=== PATIENT | female | born 1995 | race American Indian/Alaskan Native ===

== ENCOUNTER 2020-10-01 14:31 | Inpatient (IN) | payer OTHER ==
[2020-10-01 15:44] LABS: Bilirubin,Urine NEG (Negative); Blood,Urine NEG (Negative); Color,Urine Straw (Yellow); Protein,Urine <15 mg/dL mg/dL (Negative); Urobilinogen,Urine < 2.0 mg/dL (<2.0); WBC,Urine < 1.0 /HPF (0.0-6.0)
[2020-10-01 16:14] LABS: Hematocrit 30.7 % (30.3-42.9); Hemoglobin 10.4 gm/dl (10.1-14.3); Mean Corpuscular HGB Conc 34 % (30-34); Mean Corpuscular Volume 86 fl (79-97); Platelet Count 234 K/mm3 (140-440); Red Blood Count 3.59 M/mm3 (3.65-5.03); Red Cell Distribution Width 14.6 % (13.2-15.2)
[2020-10-01 16:36] LABS: Uric Acid 6.5 mg/dL (3.5-7.6)
[2020-10-01 16:53] LABS: Alanine Aminotransferase < 5 units/L (7-56)
[2020-10-01] MEDS ORDERED: TERBUTALINE 1 MG/1 ML INJ SUB-Q PRN (17:00)
[2020-10-01] MEDS ORDERED: MAGNESIUM SULFATE 4 GM/100 ML BAG IV ONE (17:00)
[2020-10-01] MEDS ORDERED: OXYTOCIN DRIP 30 UNITS/500 ML BAG IV SCH ×2 (17:00)
[2020-10-01] MEDS ORDERED: MINERAL OIL 30 ML ORAL LIQD PO PRN (17:00)
[2020-10-01] MEDS ORDERED: ePHEDrine SULFATE 50 MG/1 ML INJ IV PRN (17:00)
[2020-10-01] MEDS ORDERED: LIDOCAINE (2%) 20 MG/1 ML VIAL 20 ML MDV INFILTRATI SCH (17:00)
[2020-10-01] MEDS ORDERED: DINOPROSTONE 10 MG VAG SUPP VG NR (17:02)
--- NOTE | 2020-10-01 17:07 | History and Physical Report ---
History of Present Illness Date of examination: 10/01/20 Date of admission: 10/01/2020 Chief complaint: Sent from Office due to elevated Blood Pressures. Denies HAs, visual changes, N&V, heartburn, and edema. History of present illness: Early entry to care, course complicated by Anemia (PO FeSO4); Hgb [place], and initial low BMI (gained 60+lbs). Past History Past Medical History: no pertinent history Past Surgical History: no surgical history Family/Genetic History: none Social history: no significant social history, single - Obstetrical History Expected Date of Delivery: 10/03/20 Actual Gestation: 39 Week(s) 5 Day(s) : 1 Medications and Allergies Allergies Allergy/AdvReac Type Severity Reaction Status Date / Time No Known Allergies Allergy Verified 10/01/20 15:04 Active Meds: Active Medications Butorphanol Tartrate (Butorphanol 2 Mg/1 Ml Inj) 2 mg IV Q2H PRN PRN Reason: Pain , Severe (7-10) Dinoprostone (Dinoprostone 10 Mg Vag Supp) 10 mg VG ONCE ONE Stop: 10/01/20 17:03 Ephedrine Sulfate (Ephedrine Sulfate 50 Mg/1 Ml Inj) 10 mg IV Q2M PRN PRN Reason: Hypotension Oxytocin/Sodium Chloride (Pitocin/Ns 30 Unit/500ml) 30 units in 500 mls @ 2 mls/hr IV TITR MIGUEL; Protocol Lactated Ringer's (Lactated Ringers) 1,000 mls @ 125 mls/hr IV DIRECT MIGUEL Oxytocin/Sodium Chloride (Pitocin/Ns 30 Unit/500ml) 30 units in 500 mls @ 40 mls/hr IV TITR MIGUEL; Protocol Magnesium Sulfate (Magnesium Sulfate 40gm/1000ml) 40 gm in 1,000 mls @ 50 mls/ hr IV DIRECT MIGUEL Magnesium Sulfate (Magnesium Sulfate 4gm/100ml) 4 gm in 100 mls @ 300 mls/hr IV ONCE ONE Stop: 10/01/20 17:19 Lidocaine (Lidocaine (2%) 20 Mg/1 Ml Vial 20 Ml Mdv) 20 ml INFILTRATI ONCE MIGUEL Stop: 10/02/20 16:59 Mineral Oil (Mineral Oil 30 Ml Oral Liqd) 30 ml PO QHS PRN PRN Reason: Constipation Terbutaline Sulfate (Terbutaline 1 Mg/1 Ml Inj) 0.25 mg SUB-Q ONCE PRN PRN Reason: Hyperstimulation/Hypertonicity Review of Systems All systems: negative - Vital Signs Vital signs: Vital Signs Pulse BP 65 175/81 10/01/20 14:55 10/01/20 14:55 Temp Pulse Resp BP Pulse Ox 98.8 F 71 20 158/76 100 10/01/20 15:14 10/01/20 16:59 10/01/20 15:14 10/01/20 16:54 10/01/20 16:59 - Physical Exam Breasts: Positive: normal Cardiovascular: Regular rate Lungs: Positive: Clear to auscultation, Normal air movement Abdomen: Positive: normal appearance, soft, normal bowel sounds Genitourinary (Female): Positive: normal external genitalia, normal perenium Vagina: Positive: normal moisture Uterus: Positive: enlarged Anus/Rectum: Positive: normal perianal skin - Obstetrical FHR: category 1 Uterine Contraction Monitor Mode: External Cervical Dilatation: 1 (Per Dr[address] Alamo) Uterine Contraction Pattern: Absent Uterine Tone Measurement Phase: Resting Results Result Diagrams: 10/01/20 Unknown 10/01/20 Unknown Abnormal lab results 10/01/20 10/01/20 10/01/20 Range/Units 15:22 Unknown Unknown RBC 3.59 L (3.65-5.03) M/mm3 Creatinine 0.5 L (0.6-1.2) mg/dL ALT < 5 L (7-56) units/L Ur Specific [place] 1.002 L (1.003-1.030) All other labs normal. Assessment and Plan A: IUP @ 39 5/7 Weeks Category I Tracing Preeclampsia GBS Negative P: Admit to L&D Per Routine Orders MagSO4 4G/Loading Dose; 2G/hourly Standard Magnesium Precautions Cervidil Induction Consulted Dr. Rogel
[2020-10-01] MEDS: LACTATED RINGERS 1,000 ML IV SCH (17:55)
[2020-10-01] MEDS: MAGNESIUM SULFATE 40GM/1000ML 40 GM/1,000 ML BAG IV SCH (18:46)
[2020-10-01] MEDS: hydrALAZINE 20 MG/1 ML INJ IV PRN ×2 (20:30→21:32)
[2020-10-01] MEDS: ONDANSETRON 4 MG/2 ML INJ IV PRN (22:40)
[2020-10-02] MEDS: BUTORPHANOL 2 MG/1 ML INJ IV PRN ×2 (05:25→15:02)
[2020-10-02] MEDS: LACTATED RINGERS 1,000 ML IV SCH ×2 (06:52→21:43)
[2020-10-02] MEDS: hydrALAZINE 20 MG/1 ML INJ IV PRN (09:09)
[2020-10-02] MEDS: MAGNESIUM SULFATE 40GM/1000ML 40 GM/1,000 ML BAG IV SCH (12:59)
[2020-10-02] MEDS: ONDANSETRON 4 MG/2 ML INJ IV PRN (12:59)
--- NOTE | 2020-10-02 13:31 | Progress Note ---
Assessment and Plan Late entry for 10am A: IUP@ 39.6 wks with preeclampsia P: Continue monitoring with MgSo4 Start Pitocin Pain med/Epidural prn Anticipate Subjective - Subjective Date of service: 10/02/20 Principal diagnosis: IUP@ 39.6 wks with preeclampsia Patient reports: movement normal Objective - Vital Signs Vital Signs: Vital Signs - 12hr 10/02/20 10/02/20 10/02/20 01:27 01:49 01:57 Temperature Pulse Rate 91 H 86 76 Respiratory Rate Blood Pressure 185/98 145/74 154/74 Blood Pressure [Right] 10/02/20 10/02/20 10/02/20 02:56 03:27 03:57 Temperature Pulse Rate 74 76 78 Respiratory Rate Blood Pressure 151/75 161/87 135/63 Blood Pressure [Right] 10/02/20 10/02/20 10/02/20 04:28 04:56 05:59 Temperature Pulse Rate 77 71 71 Respiratory Rate Blood Pressure 160/85 144/77 146/67 Blood Pressure [Right] 10/02/20 10/02/20 10/02/20 06:26 07:04 07:27 Temperature 97.5 F L Pulse Rate 73 65 61 Respiratory 18 Rate Blood Pressure 147/66 147/69 158/74 Blood Pressure 147/69 [Right] 10/02/20 10/02/20 10/02/20 08:27 09:03 09:04 Temperature Pulse Rate 66 74 70 Respiratory Rate Blood Pressure 133/65 184/100 171/84 Blood Pressure [Right] 10/02/20 10/02/20 10/02/20 09:07 09:09 09:27 Temperature Pulse Rate 66 66 75 Respiratory Rate Blood Pressure 178/100 178/100 137/64 Blood Pressure [Right] 10/02/20 10/02/20 10/02/20 09:28 10:26 11:16 Temperature 97.4 F L Pulse Rate 75 75 69 Respiratory 18 Rate Blood Pressure 140/63 136/60 157/74 Blood Pressure 157/74 [Right] 10/02/20 10/02/20 11:27 12:27 Temperature Pulse Rate 72 70 Respiratory Rate Blood Pressure 137/56 143/69 Blood Pressure [Right] - Exam Breasts: normal Abdomen: Present: normal appearance, soft, normal bowel sounds, other (gravid) Vulva: both: normal Uterus: Present: normal FHR: auscultation normal, category 1 Uterine Contraction Monitor Mode: External Cervical Dilatation: 3.5 Cervical Effacement Percentage: 80 station: -3 Uterine Contraction Pattern: Irregular Uterine Tone Measurement Phase: Resting Uterine Contraction Intensity: Mild Extremities: normal - Labs Labs: Abnormal Labs 10/01/20 10/01/20 10/01/20 15:22 Unknown Unknown RBC 3.59 L Creatinine 0.5 L Magnesium ALT < 5 L Ur Specific [place] 1.002 L 10/02/20 10/02/20 01:16 07:19 RBC Creatinine Magnesium 5.00 H 5.70 H ALT Ur Specific [place] Laboratory Results - last 24 hr 10/01/20 10/01/20 10/01/20 15:22 17:00 Unknown WBC 7.0 RBC 3.59 L Hgb 10.4 Hct 30.7 MCV 86 MCH 29 MCHC 34 RDW 14.6 Plt Count 234 Creatinine Estimated GFR Uric Acid Magnesium AST ALT Lactate Dehydrogenase Urine Color Straw Urine Turbidity Clear Urine pH 7.0 Ur Specific [place] 1.002 L Urine Protein <15 mg/dl Urine Glucose (UA) Neg Urine Ketones Neg Urine Blood Neg Urine Nitrite Neg Urine Bilirubin Neg Urine Urobilinogen < 2.0 Ur Leukocyte Esterase Tr Urine WBC (Auto) < 1.0 Urine RBC (Auto) 1.0 U Epithel Cells (Auto) 2.0 Blood Type A POSITIVE Antibody Screen Negative 10/01/20 10/02/20 10/02/20 Unknown 01:16 07:19 WBC RBC Hgb Hct MCV MCH MCHC RDW Plt Count Creatinine 0.5 L Estimated GFR > 60 Uric Acid 6.5 Magnesium 5.00 H 5.70 H AST 13 ALT < 5 L Lactate Dehydrogenase 153 Urine Color Urine Turbidity Urine pH Ur Specific [place] Urine Protein Urine Glucose (UA) Urine Ketones Urine Blood Urine Nitrite Urine Bilirubin Urine Urobilinogen Ur Leukocyte Esterase Urine WBC (Auto) Urine RBC (Auto) U Epithel Cells (Auto) Blood Type Antibody Screen
[2020-10-02] MEDS ORDERED: NALOXONE 2 MG/2 ML INJ IV PRN (15:04)
[2020-10-02] MEDS ORDERED: diphenhydrAMINE 50 MG/ML VIAL IV PRN (15:04)
[2020-10-02] MEDS ORDERED: NalbUPHINE 10 MG/1 ML INJ IV PRN (15:04)
[2020-10-02] MEDS ORDERED: fentaNYL-BUPIV 2 MCG/ML-0.125% 200 MCG/100 ML BAG EPIDURAL SCH (16:00)
--- NOTE | 2020-10-02 16:50 | Anesthesia Consultation ---
Anesthesia Consult and Med Hx Date of service: 10/02/20 - Airway Anesthetic Teeth Evaluation: Good ROM Head & Neck: Adequate Mental/Hyoid Distance: Adequate Mallampati Class: Class I Intubation Access Assessment: Good - Pulmonary Exam CTA: Yes - Cardiac Exam Cardiac Exam: RRR - Pre-Operative Health Status ASA Pre-Surgery Classification: ASA2 Proposed Anesthetic Plan: Epidural - Pulmonary Hx Smoking: No Hx Asthma: No COPD: No Hx Pneumonia: No Hx Sleep Apnea: No - Cardiovascular System Hx Hypertension: No Hx Heart Attack/AMI: No Hx Angina: No - Central Nervous System Hx Seizures: No Hx Psychiatric Problems: No - Gastrointestinal Hx Gastroesophageal Reflux Disease: No - Endocrine Hx Renal Disease: No Hx End Stage Renal Disease: No Hx Insulin Dependent Diabetes: No Hx Non-Insulin Dependent Diabetes: No Hx Hypothyroidism: No Hx Hyperthyroidism: No - Hematic Hx Anemia: No Hx Sickle Cell Disease: No - Other Systems Hx Alcohol Use: No
--- NOTE | 2020-10-02 16:51 | Progress Note ---
Labor Epidural - Labor Epidural Start Time: 16:21 Stop Time: 16:45 Performed by:: PAVEL ARELLANO ([facility]) Procedure: Patient is requesting epidural for labor and pain. H&P, labs were reviewed. Patient IDed, H&P reviewed, all questions and concerns were answered, and consent was signed. Timeout was performed at bedside. Patient in sitting position. Sterile prep and drape was performed. 3ml of 1% lidocaine skin wheal at L[3]- L [4]. 18-gauge Tuohy epidural needle was advanced to loss of resistance with air technique 6cm. Negative CSF negative blood. Epidural catheter advanced to [11] centimeters. [negative] Aspiration [negative] test dose. Sterile dressing applied. Patient tolerated procedure.
[2020-10-03] MEDS ORDERED: miSOPROStol 200 MCG TAB ONE (03:22)
[2020-10-03] MEDS ORDERED: miSOPROStol 100 MCG TAB ONE (03:23)
[2020-10-03] MEDS ORDERED: PROMETHAZINE 25 MG TAB PO PRN (03:41)
[2020-10-03] MEDS ORDERED: LANOLIN/ZINC/DIMETHICONE (LANSINOH) 7 GM TP PRN (03:41)
[2020-10-03] MEDS ORDERED: PROMETHAZINE 25 MG RECT SUPP PR PRN (03:41)
[2020-10-03] MEDS ORDERED: diphenhydrAMINE 25 MG CAP PO PRN (03:41)
[2020-10-03] MEDS ORDERED: WITCH HAZEL/ GLYCERIN PAD TP PRN (03:41)
[2020-10-03] MEDS ORDERED: MAGNESIUM HYDROXIDE (MOM) ORAL LIQD UDC PO PRN (03:41)
--- NOTE | 2020-10-03 03:46 | Procedure Note ---
OB Delivery Note - Delivery Date of Delivery: 10/03/20 Surgeon: ALEXIS BAILON Estimated blood loss: other (150 cc) - Vaginal Delivery presentation: vertex Delivery position: OA Intrapartum events: meconium, preeclampsia Delivery induction: cervidil Delivery augmentation: rupture of membranes, pitocin Delivery monitor: external FHT, external uterine Route of delivery: Delivery placenta: spontaneous Delivery cord: nuchal cord, 3 umbilical vessels Episiotomy: none Delivery laceration: 1st degree, other (left labial) Anesthesia: epidural Delivery comments: Called to for delivery. SVE 10/100%/+2 and pt was pushing. of a live viable male infant in OA position over light meconium. Spontaneous delivery of head. Loose nuchal reduced over infants head at the perineum. Shoulders were delivered with mom in McRobert's position, and while nurse was applying suprapubic pressure due to poor maternal pushing efforts. was placed on mom's chest after delivery for skin to skin bonding. Delayed cord clamping x 90 sec while NICU nurse dried and stimulated baby then baby was taken to infant warmer for an assess. 7/9. Spontaneous delivery of an intact placenta with 3CV. Fundus was @ U2 and boggy off and on with continuous trickle of bright red blood. Homeostasis was maintained with fundal massage, IV Pitocin, and Cytotec 800 mcg CO. An exploration of tears revealed a non bleeding 1st degree left labial tear which was not in need of repair. EBL 150cc; FW 3500 Gms. Mom and baby was left in stable condition with L&D nurse. - Infant A at 1 minute: 7 at 5 minutes: 9 Gender: Male (FW 3500 Gms)
[2020-10-03] MEDS: hydrALAZINE 20 MG/1 ML INJ IV PRN ×5 (03:47→18:13)
[2020-10-03] MEDS ORDERED: miSOPROStol 200 MCG TAB PR ONE (06:11)
[2020-10-03] MEDS ORDERED: fentaNYL 100 MCG/2 ML INJ IV SCH (08:30)
[2020-10-03] MEDS ORDERED: oxyCODONE /ACETAMINOPHEN 5-325MG TAB PO PRN (08:30)
[2020-10-03] MEDS: ONDANSETRON 4 MG/2 ML INJ IV PRN ×2 (08:36→19:47)
--- NOTE | 2020-10-03 09:39 | Post Anesthesia Evaluation ---
- Post Anesthesia Evaluation Patient Participated: Yes Airway Patent: Yes Stable Respiratory Function: Yes Nausea/Vomiting: No Temp > 96.8F: Yes Pain Manageable: Yes Adequeate Hydration: Yes Anesthesia Complications: No Block Receding Appropriately: Yes Patient on Ventilator: No
[2020-10-03] MEDS: MAGNESIUM SULFATE 40GM/1000ML 40 GM/1,000 ML BAG IV SCH (10:25)
[2020-10-03] MEDS: IBUPROFEN 600 MG TAB PO SCH ×3 (10:51→22:38)
--- NOTE | 2020-10-03 11:06 | Progress Note ---
Subjective - Subjective Date of service: 10/03/20 Principal diagnosis: IUP@ 39.6 wks with preeclampsia Interval history: PE: on mgso4 and labetalol: overall BP;s <140/90, had had one treatable series: will continue to monitor: if persistent elevated off mag will increase oral labetalol. Low grade temp: presume chorio: ancef x 1 gm given no new complaints overall at bedside tolerating PO Objective - Vital Signs Latest vital signs: Vital Signs Temp Pulse Resp BP BP Pulse Ox 10/03/20 11:05 75 86 10/03/20 11:03 113 H 85 10/03/20 11:01 88 171/77 10/03/20 11:00 77 84 10/03/20 10:58 87 100 10/03/20 10:53 92 H 100 10/03/20 10:48 95 H 100 10/03/20 10:43 88 99 10/03/20 10:38 94 H 100 10/03/20 10:33 95 H 99 10/03/20 10:30 96 H 136/94 10/03/20 10:28 89 99 10/03/20 10:23 88 100 10/03/20 10:19 90 176/85 10/03/20 10:18 90 98 10/03/20 10:13 90 99 10/03/20 10:08 87 99 10/03/20 10:03 92 H 100 10/03/20 10:01 95 H 176/85 10/03/20 09:58 87 96 10/03/20 09:53 86 97 10/03/20 09:48 86 97 10/03/20 09:43 83 98 10/03/20 09:38 87 99 10/03/20 09:33 86 99 10/03/20 09:31 85 168/79 10/03/20 09:28 85 99 10/03/20 09:23 82 99 10/03/20 09:18 76 100 10/03/20 09:13 102 H 98 10/03/20 09:08 85 99 10/03/20 09:03 90 99 10/03/20 09:01 81 165/75 10/03/20 08:58 89 98 10/03/20 08:53 81 99 10/03/20 08:48 84 99 10/03/20 08:43 86 99 10/03/20 08:39 85 171/88 10/03/20 08:38 86 97 10/03/20 08:33 84 99 10/03/20 08:28 86 99 10/03/20 08:23 86 99 10/03/20 08:18 85 99 10/03/20 08:13 88 100 10/03/20 08:08 92 H 99 10/03/20 08:03 83 100 10/03/20 07:58 83 99 10/03/20 07:53 85 100 10/03/20 07:48 86 100 10/03/20 07:43 99.6 F 89 18 152/72 152/72 99 10/03/20 07:39 89 146/65 10/03/20 07:38 83 81 L 10/03/20 07:33 58 L 18 L 10/03/20 07:31 87 10/03/20 07:25 88 10/03/20 07:22 43 L 73 L 10/03/20 07:19 37 L 90 10/03/20 07:17 94 H 98 10/03/20 07:12 98 H 99 10/03/20 07:07 87 99 10/03/20 07:02 91 H 99 10/03/20 06:57 98 H 99 10/03/20 06:52 89 100 10/03/20 06:47 99 H 100 10/03/20 06:42 93 H 100 10/03/20 06:37 88 100 10/03/20 06:32 90 100 10/03/20 06:31 89 179/86 10/03/20 06:27 102 H 100 10/03/20 06:22 91 H 100 10/03/20 06:17 101 H 100 10/03/20 06:15 95 H 162/75 10/03/20 06:12 94 H 99 10/03/20 06:07 91 H 99 10/03/20 06:02 90 99 10/03/20 06:00 96 H 165/86 10/03/20 05:57 89 99 10/03/20 05:52 92 H 99 10/03/20 05:47 90 99 10/03/20 05:45 88 10/03/20 05:42 89 99 10/03/20 05:37 92 H 100 10/03/20 05:32 87 99 10/03/20 05:30 86 168/84 10/03/20 05:27 90 99 10/03/20 05:24 88 180/90 10/03/20 05:22 101 H 100 10/03/20 05:17 87 99 10/03/20 05:12 94 H 168/79 100 10/03/20 05:08 84 168/79 10/03/20 05:07 89 98 10/03/20 05:02 86 98 10/03/20 04:57 90 99 10/03/20 04:52 89 159/91 99 10/03/20 04:47 93 H 166/77 99 10/03/20 04:42 93 H 174/80 99 10/03/20 04:37 95 H 188/111 99 10/03/20 04:33 96 H 166/130 10/03/20 04:32 98 H 100 10/03/20 04:27 95 H 180/93 99 10/03/20 04:23 93 H 157/86 10/03/20 04:22 94 H 175/93 99 10/03/20 04:17 98 H 100 10/03/20 04:16 99 H 178/93 10/03/20 04:12 94 H 183/97 99 10/03/20 04:07 93 H 98 10/03/20 04:02 87 173/89 100 10/03/20 03:57 86 100 10/03/20 03:52 101 H 99 10/03/20 03:47 97 H 177/90 100 10/03/20 03:45 86 182/92 10/03/20 03:42 88 99 10/03/20 03:41 90 185/91 10/03/20 03:40 94 H 207/130 10/03/20 03:27 90 153/81 10/03/20 03:25 93 H 174/88 10/03/20 02:47 76 100 10/03/20 02:42 72 100 10/03/20 02:37 81 98 10/03/20 02:32 71 98 10/03/20 02:27 72 99 10/03/20 02:22 70 99 10/03/20 02:20 71 131/68 10/03/20 02:17 70 99 10/03/20 02:12 68 98 10/03/20 02:07 68 100 10/03/20 02:02 69 100 10/03/20 01:57 68 98 10/03/20 01:53 98.1 F 10/03/20 01:52 65 98 10/03/20 01:47 66 99 10/03/20 01:42 65 99 10/03/20 01:37 63 99 10/03/20 01:32 61 100 10/03/20 01:27 64 100 10/03/20 01:22 67 99 10/03/20 01:20 56 L 115/56 10/03/20 01:17 61 98 10/03/20 01:12 57 L 99 10/03/20 01:07 58 L 98 10/03/20 01:02 59 L 100 10/03/20 00:57 70 100 10/03/20 00:52 66 99 10/03/20 00:47 67 100 10/03/20 00:42 61 100 10/03/20 00:37 68 100 10/03/20 00:32 67 98 10/03/20 00:27 63 99 10/03/20 00:22 66 99 10/03/20 00:21 64 125/60 10/03/20 00:17 67 99 10/03/20 00:12 65 99 10/03/20 00:07 64 98 10/03/20 00:02 65 98 10/02/20 23:57 64 98 10/02/20 23:52 65 98 10/02/20 23:47 63 98 10/02/20 23:42 66 98 10/02/20 23:37 62 99 10/02/20 23:33 98.1 F 62 15 120/60 99 10/02/20 23:32 62 99 10/02/20 23:27 61 98 10/02/20 23:22 65 99 10/02/20 23:20 61 120/60 10/02/20 23:17 63 99 10/02/20 23:12 70 98 10/02/20 23:07 69 98 10/02/20 23:02 67 98 10/02/20 22:57 67 98 10/02/20 22:52 68 99 10/02/20 22:47 70 98 10/02/20 22:42 75 99 10/02/20 22:37 71 98 03/11/21 22:32 70 98 10/02/20 22:27 73 98 10/02/20 22:22 73 98 10/02/20 22:21 72 123/60 10/02/20 22:17 74 98 10/02/20 22:12 68 98 10/02/20 21:39 69 157/79 10/02/20 21:38 67 157/79 10/02/20 21:09 67 174/97 10/02/20 20:39 71 153/78 10/02/20 20:10 76 160/75 10/02/20 19:39 71 142/67 10/02/20 19:13 97.7 F 67 15 10/02/20 19:12 67 155/74 10/02/20 19:11 68 160/78 10/02/20 18:38 70 137/67 10/02/20 18:09 67 135/63 10/02/20 17:36 67 149/69 10/02/20 17:20 61 145/70 10/02/20 17:07 67 142/70 10/02/20 16:50 65 155/82 10/02/20 16:48 68 162/80 10/02/20 16:46 64 167/82 10/02/20 16:44 71 170/85 10/02/20 16:42 69 160/88 10/02/20 16:40 63 165/78 100 10/02/20 16:38 63 158/72 10/02/20 16:36 67 161/69 10/02/20 16:35 67 99 10/02/20 16:34 65 166/75 10/02/20 16:30 64 100 10/02/20 16:29 63 169/87 10/02/20 16:25 69 100 10/02/20 16:24 68 176/85 10/02/20 16:20 71 98 10/02/20 15:28 97.8 F 67 18 138/67 138/67 10/02/20 15:02 18 10/02/20 14:26 83 133/99 10/02/20 13:27 81 158/81 10/02/20 12:27 70 143/69 10/02/20 11:27 72 137/56 10/02/20 11:16 97.4 F L 69 18 157/74 157/74 Intake and Output 10/02/20 10/03/20 10/03/20 23:59 07:59 15:59 Intake Total 2.083 1000 Output Total 793 396 9848 Balance -922.917 -800 -950 Intake: IV 2.083 1000 Lactated Ringers 1,000 ml 2.083 @ 125 mls/hr IV DIRECT MIGUEL Rx#:[id number] MAGNESIUM SULFATE 40GM/ 1000 1000ML 40 gm In 1,000 ml @ 2 GM/HR 50 mls/hr IV DIRECT MIGUEL Rx#:[id number] Output: Urine 764 935 1829 Indwelling Catheter 303 718 2157 Other: Total, Output Amount 300 300 500 Estimated Blood Loss 150 - Exam Breasts: Present: deferred Cardiovascular: Present: Regular rate Lungs: Present: Clear to auscultation Abdomen: Present: normal appearance, normal bowel sounds Uterus: Present: fundal height at umbilicus Deep Tendon Reflex Grade: Dull/Diminished +1 - Labs Labs: Abnormal lab results 10/02/20 10/03/20 10/03/20 Range/Units 16:09 00:25 07:04 Magnesium 6.30 H 7.40 H 6.70 H (1.7-2.3) mg/dL
[2020-10-03] MEDS: LACTATED RINGERS 1,000 ML IV SCH (14:23)
[2020-10-03 15:24] LABS: Hematocrit 29.5 % (30.3-42.9); Hemoglobin 9.9 gm/dl (10.1-14.3)
[2020-10-04] MEDS: IBUPROFEN 600 MG TAB PO SCH ×4 (04:06→22:10)
--- NOTE | 2020-10-04 10:48 | Progress Note ---
Assessment and Plan A: day 1 S/P . Preeclampsia. Anemia. P: Continue Labetalol for control of BPs. Supplement with iron. Subjective - Subjective Date of service: 10/04/20 Principal diagnosis: day 1 S/P ; preeclampsia Interval history: Patient denies headache, visual disturbance, chest pain, shortness of breath, leg pain, swelling, or N/V. Magnesium sulfate was stopped earlier this morning. BPs controlled with Labetalol. Patient reports: appetite normal, voiding normally, pain well controlled, flatus, ambulating normally, no dizzy ambulation, no nauseated [place]: doing well Objective - Vital Signs Latest vital signs: Vital Signs Temp Pulse Resp BP BP Pulse Ox 10/04/20 08:16 98.2 F 69 18 159/74 96 10/04/20 04:07 72 138/68 10/04/20 04:06 16 10/04/20 03:12 76 99 10/04/20 03:08 67 139/67 10/04/20 03:07 69 97 10/04/20 03:02 76 99 10/04/20 02:57 79 99 10/04/20 02:52 75 98 10/04/20 02:47 84 99 10/04/20 02:42 81 98 10/04/20 02:37 66 100 10/04/20 02:32 68 98 10/04/20 02:27 62 100 10/04/20 02:22 65 100 10/04/20 02:17 72 99 10/04/20 02:13 63 80 L 10/04/20 02:12 74 99 10/04/20 02:07 69 134/64 97 10/04/20 00:08 71 157/77 10/03/20 23:38 18 10/03/20 23:07 83 123/66 10/03/20 22:07 76 117/85 10/03/20 21:07 78 133/60 10/03/20 20:01 77 149/81 10/03/20 19:30 98.5 F 77 20 131/77 10/03/20 19:00 83 132/67 10/03/20 18:31 86 168/82 10/03/20 18:16 97 H 174/118 10/03/20 18:13 97 H 174/118 10/03/20 18:01 97 H 174/118 10/03/20 17:31 81 173/84 10/03/20 17:14 80 166/77 10/03/20 17:00 80 166/77 10/03/20 16:31 78 180/89 10/03/20 16:00 98.6 F 81 18 155/72 155/72 10/03/20 15:31 85 159/85 10/03/20 15:00 81 182/95 10/03/20 14:30 79 143/67 10/03/20 14:01 93 H 161/76 10/03/20 13:30 83 139/71 10/03/20 13:00 88 141/71 10/03/20 12:30 85 166/79 10/03/20 12:11 90 174/90 10/03/20 12:05 99.2 F 90 18 174/90 10/03/20 12:03 56 L 0 L 10/03/20 12:00 83 174/90 10/03/20 11:55 71 L 10/03/20 11:49 52 L 88 10/03/20 11:44 54 L 0 L 10/03/20 11:41 56 L 96 10/03/20 11:33 56 L 91 10/03/20 11:31 85 90/75 10/03/20 11:16 61 88 10/03/20 11:10 86 10/03/20 11:05 75 86 10/03/20 11:03 113 H 85 10/03/20 11:01 88 171/77 10/03/20 11:00 77 84 10/03/20 10:58 87 100 10/03/20 10:53 92 H 100 10/03/20 10:48 95 H 100 Intake and Output 10/03/20 10/04/20 10/04/20 23:59 07:59 15:59 Intake Total 1620 1613.667 Output Total 4100 2100 Balance -2480 -486.333 Intake: IV 1613.667 Lactated Ringers 1,000 ml 772 @ 125 mls/hr IV DIRECT MIGUEL Rx#:[id number] MAGNESIUM SULFATE 40GM/ 841.667 1000ML 40 gm In 1,000 ml @ 2 GM/HR 50 mls/hr IV DIRECT MIGUEL Rx#:[id number] Oral 1620 Output: Urine 4100 2100 Indwelling Catheter 4100 1700 Void 400 Other: Total, Intake Amount 360 Total, Output Amount 500 400 # Voids Void 1 - Exam Cardiovascular: Present: Regular rate, No murmurs Lungs: Present: Clear to auscultation Abdomen: Present: normal appearance, soft. Absent: distention, tenderness, guarding, rigidity Uterus: Present: normal, fundal height below umbilicus Extremities: Present: normal. Absent: tenderness - Labs Labs: Abnormal lab results 10/03/20 10/04/20 Range/Units 14:55 00:51 Hgb 9.9 L (10.1-14.3) gm/dl Hct 29.5 L (30.3-42.9) % Magnesium 6.70 H (1.7-2.3) mg/dL
[2020-10-04] MEDS ORDERED: FERROUS SULFATE 325 MG TAB PO SCH (11:00)
[2020-10-04 15:37] LABS: Basophils # (Auto) 0.1 K/mm3 (0.0-0.1); Basophils % (Auto) 0.7 % (0.0-1.8); Eosinophils # (Auto) 0.2 K/mm3 (0.0-0.4); Eosinophils % (Auto) 1.4 % (0.0-4.3); Hematocrit 23.7 % (30.3-42.9); Hemoglobin 8.4 gm/dl (10.1-14.3); Lymphocytes # (Auto) 1.4 K/mm3 (1.2-5.4); Lymphocytes % (Auto) 12.2 % (13.4-35.0); Mean Corpuscular HGB Conc 36 % (30-34); Mean Corpuscular Volume 84 fl (79-97); Monocytes # (Auto) 0.7 K/mm3 (0.0-0.8); Monocytes % (Auto) 6.6 % (0.0-7.3); Platelet Count 242 K/mm3 (140-440); Red Blood Count 2.81 M/mm3 (3.65-5.03); Red Cell Distribution Width 14.6 % (13.2-15.2)
[2020-10-04 15:47] LABS: Alanine Aminotransferase 14 units/L (7-56); Albumin 3.1 g/dL (3.9-5); Blood Urea Nitrogen 6 mg/dL (7-17); Calcium 9.1 mg/dL (8.4-10.2); Hemolysis Index 0; Uric Acid 8.3 mg/dL (3.5-7.6)
[2020-10-04 15:49] LABS: BUN/Creatinine Ratio 9
[2020-10-04] MEDS ORDERED: NACL 0.9%/KCL 20 MEQ 20 MEQ/1,000 ML BAG IV SCH (16:21)
--- NOTE | 2020-10-04 16:52 | Event Note ---
Date: 10/04/20 K of 2.7. Orders put in. Spoke with patient and informed her of the above. Advised patient to increase her intake of fruits and vegetables. Repeat CMP ordered for 10/05.
[2020-10-04] MEDS: FERROUS SULFATE 325 MG TAB PO SCH (22:11)
[2020-10-05] MEDS: IBUPROFEN 600 MG TAB PO SCH ×4 (05:30→22:00)
[2020-10-05 06:40] LABS: Alanine Aminotransferase 10 units/L (7-56); Albumin 2.7 g/dL (3.9-5); Blood Urea Nitrogen 6 mg/dL (7-17); Calcium 8.2 mg/dL (8.4-10.2); Hemolysis Index 2
[2020-10-05 06:41] LABS: BUN/Creatinine Ratio 9
[2020-10-05] MEDS ORDERED: POTASSIUM CHLORIDE ER 20 MEQ TAB PO NR (07:11)
--- NOTE | 2020-10-05 09:57 | Progress Note ---
Assessment and Plan A: day 2 S/P . Preeclampsia. Anemia. Hypokalemia. P: Continue Labetalol for control of BPs. Iron supplementation. Potassium supplementation. Advised patient re: need to increase her intake of fresh fruits and vegetables. Consulted with Dr. Meza re: this patient. Subjective - Subjective Date of service: 10/05/20 Principal diagnosis: day 2 S/P ; preeclampsia Interval history: Patient denies headache, visual disturbance, chest pain, shortness of breath, leg pain, swelling, or N/V. BP stable. K-Dur given this morning for hypokalemia; per MD order pt. is to receive K-Dur 20 milliequivalents every 12 hours for 5 days (order put in). Patient reports: appetite normal, voiding normally, pain well controlled, flatus, ambulating normally, no dizzy ambulation, no nauseated : doing well Objective - Vital Signs Latest vital signs: Vital Signs Temp Pulse Resp BP BP Pulse Ox 10/05/20 08:15 81 141/67 10/05/20 08:00 98.3 F 81 18 141/67 95 10/05/20 04:26 98.0 F 68 18 111/65 98 10/05/20 01:30 98.6 F 10/05/20 01:28 68.0 F L 58 L 18 114/52 98 10/04/20 22:10 66 139/59 10/04/20 19:44 98.0 F 62 18 137/67 98 10/04/20 16:21 98.1 F 68 18 134/71 99 10/04/20 15:05 63 157/67 96 10/04/20 12:45 98.2 F 79 18 169/90 93 10/04/20 11:14 61 18 143/49 98 Intake and Output 10/04/20 10/05/20 10/05/20 22:59 07:59 15:59 Intake Total Balance Intake: Intake, Free Water Other: # Voids Void - Exam Abdomen: Present: normal appearance, soft. Absent: distention, tenderness, guarding, rigidity Uterus: Present: normal, firm, fundal height below umbilicus. Absent: bogginess, tenderness Extremities: Present: normal. Absent: tenderness, edema - Labs Labs: Abnormal lab results 10/04/20 10/04/20 10/05/20 Range/Units 15:16 15:16 06:03 WBC 11.1 H (4.5-11.0) K/mm3 RBC 2.81 L (3.65-5.03) M/mm3 Hgb 8.4 L (10.1-14.3) gm/dl Hct 23.7 L (30.3-42.9) % MCHC 36 H (30-34) % Lymph % (Auto) 12.2 L (13.4-35.0) % Seg Neutrophils % 79.1 H (40.0-70.0) % Seg Neutrophils # 8.8 H (1.8-7.7) K/mm3 Sodium 133 L (137-145) mmol/L Potassium 2.7 L* 2.6 L* (3.6-5.0) mmol/L Chloride 94.5 L (98-107) mmol/L BUN 6 L 6 L (7-17) mg/dL Uric Acid 8.3 H (3.5-7.6) mg/dL Calcium 8.2 L (8.4-10.2) mg/dL Alkaline Phosphatase 141 H (35-129) units/L Lactate Dehydrogenase 352 H (91-180) units/L Total Protein 5.8 L 4.9 L (6.3-8.2) g/dL Albumin 3.1 L 2.7 L (3.9-5) g/dL
[2020-10-05] MEDS: FERROUS SULFATE 325 MG TAB PO SCH ×2 (10:15→22:00)
[2020-10-05] MEDS ORDERED: POTASSIUM CHLORIDE ER 20 MEQ TAB PO SCH (20:00)
[2020-10-06] MEDS: IBUPROFEN 600 MG TAB PO SCH ×5 (03:00→23:24)
[2020-10-06 07:42] LABS: Hematocrit 23.7 % (30.3-42.9); Hemoglobin 7.9 gm/dl (10.1-14.3); Mean Corpuscular HGB Conc 33 % (30-34); Mean Corpuscular Volume 86 fl (79-97); Platelet Count 272 K/mm3 (140-440); Red Blood Count 2.77 M/mm3 (3.65-5.03); Red Cell Distribution Width 14.9 % (13.2-15.2)
[2020-10-06 08:52] LABS: Alanine Aminotransferase 10 units/L (7-56); Blood Urea Nitrogen 4 mg/dL (7-17); Calcium 8.8 mg/dL (8.4-10.2); Hemolysis Index 1
[2020-10-06 09:00] LABS: BUN/Creatinine Ratio 7
[2020-10-06] MEDS ORDERED: POTASSIUM CHLORIDE 10 MEQ 10 MEQ/100 ML BAG IV SCH (11:00)
--- NOTE | 2020-10-06 11:02 | Progress Note ---
Assessment and Plan A: Day 3 Preeclampsia Asymptomatic Anemia Hypokalemia P: Follow routine orders Continue Labetalol 200mg TID Monitor BPs Infed 100 mg IM x 1 dose Continue Ferrous Sulfate 325mg PO BID Potassium Sulfate 10meQ IV x 1 dose Repeat CMP in 12 hours Depo 150mg IM x 1 dose prior to discharge Subjective - Subjective Date of service: 10/06/20 Principal diagnosis: day 3 S/P ; preeclampsia Patient reports: appetite normal, voiding normally, pain well controlled, bowel movement, ambulating normally, other (Denies headaches, visual changes, epigastric pain, nausea or swelling. Denies dizziness or shortness of breath.) : doing well, bottle feeding (and ) Objective - Vital Signs Latest vital signs: Vital Signs Temp Pulse Resp BP BP Pulse Ox 10/06/20 09:03 98.2 F 69 18 150/62 98 10/06/20 03:57 98.0 F 71 18 146/69 98 10/05/20 23:48 98.0 F 73 16 138/61 98 10/05/20 20:11 69 138/70 10/05/20 19:48 98.0 F 69 18 138/70 96 10/05/20 15:38 97.8 F 79 18 120/98 10/05/20 13:55 78 154/90 10/05/20 12:15 98.2 F 68 18 161/73 98 Intake and Output 10/05/20 10/06/20 10/06/20 22:59 06:59 14:59 Intake Total 200 300 Balance 200 300 Intake: Intake, Free Water 200 300 Other: # Voids Void 1 1 - Exam Breasts: Present: normal Cardiovascular: Present: Regular rate, Normal S1, Normal S2 Lungs: Present: Clear to auscultation, Normal air movement Abdomen: Present: normal appearance, soft Uterus: Present: normal, firm, fundal height below umbilicus Extremities: Present: normal - Labs Labs: Abnormal lab results 10/06/20 10/06/20 Range/Units 07:25 07:25 RBC 2.77 L (3.65-5.03) M/mm3 Hgb 7.9 L (10.1-14.3) gm/dl Hct 23.7 L (30.3-42.9) % Potassium 3.1 L (3.6-5.0) mmol/L BUN 4 L (7-17) mg/dL Lactate Dehydrogenase 237 H (91-180) units/L Total Protein 5.7 L (6.3-8.2) g/dL Albumin 3.0 L (3.9-5) g/dL
[2020-10-06] MEDS ORDERED: medroxyPROGESTERone ACETATE 150 MG/ML SYRINGE IM NR (11:03)
[2020-10-06] MEDS ORDERED: IRON DEXTRAN COMPLEX 100 MG/2 ML INJ IM SCH (12:00)
[2020-10-06] MEDS: FERROUS SULFATE 325 MG TAB PO SCH ×2 (14:38→21:47)
--- NOTE | 2020-10-06 17:51 | Event Note ---
Date: 10/06/20 RN called because BPs persistently elevated, but not severe range on labetolol 200mg TID. Titrate to 300mg q8hr. Additional 100mg now. Continue to monitor. Titrate BP meds until BPs persistently within normal range.
[2020-10-06 23:20] LABS: Alanine Aminotransferase 12 units/L (7-56); Albumin 3.1 g/dL (3.9-5); Blood Urea Nitrogen 5 mg/dL (7-17); Calcium 8.1 mg/dL (8.4-10.2); Hemolysis Index 2
[2020-10-06 23:56] LABS: BUN/Creatinine Ratio 8
[2020-10-07] MEDS: IBUPROFEN 600 MG TAB PO SCH ×4 (05:31→23:06)
[2020-10-07] MEDS ORDERED: POTASSIUM CHLORIDE ER 20 MEQ TAB PO ONE ×2 (06:38→10:06)
--- NOTE | 2020-10-07 09:37 | Progress Note ---
Assessment and Plan PPD # 4 A: S/P Preeclampsia Asymptomatic anemia Hypokalemia P: Continue routine pp care Continue monitoring b/p Encourage intake of foods high in K+ D/c home tomm if b/ps are stable Subjective - Subjective Date of service: 10/07/20 Principal diagnosis: day 3 S/P ; preeclampsia Patient reports: appetite normal, voiding normally, pain well controlled, ambulating normally, other (B/p remains slightly elevated. However, pt denies olvera, visual problems, or epigastric pain.) : doing well Objective - Vital Signs Latest vital signs: Vital Signs Temp Pulse Resp BP BP Pulse Ox 10/07/20 07:37 98.6 F 71 18 152/77 99 10/07/20 05:34 70 152/80 10/07/20 05:31 20 10/07/20 01:43 68 152/87 10/07/20 00:53 98.2 F 63 16 168/71 100 10/06/20 23:24 20 10/06/20 21:47 74 156/88 10/06/20 16:30 98 F 65 16 157/89 100 10/06/20 14:37 79 18 159/79 100 Intake and Output 10/06/20 10/07/20 10/07/20 22:59 06:59 14:59 Intake Total 240 182 120 Balance 240 182 120 Intake: Oral 120 Intake, Free Water 240 182 Other: Total, Intake Amount 120 # Voids Void 3 1 1 - Exam Breasts: Present: normal Abdomen: Present: normal appearance, soft, normal bowel sounds Vulva: both: normal Uterus: Present: normal, firm, fundal height below umbilicus Extremities: Present: normal Incision: Present: normal, intact - Labs Labs: Abnormal lab results 10/06/20 Range/Units 22:48 Potassium 3.2 L (3.6-5.0) mmol/L BUN 5 L (7-17) mg/dL Calcium 8.1 L (8.4-10.2) mg/dL Total Protein 5.7 L (6.3-8.2) g/dL Albumin 3.1 L (3.9-5) g/dL
[2020-10-07] MEDS: NIFEdipine XL 30 MG TAB PO SCH (10:09)
[2020-10-07] MEDS: FERROUS SULFATE 325 MG TAB PO SCH ×2 (10:10→21:20)
[2020-10-08] MEDS: IBUPROFEN 600 MG TAB PO SCH ×2 (05:47→10:13)
[2020-10-08] MEDS: NIFEdipine XL 30 MG TAB PO SCH (10:12)
[2020-10-08] MEDS: FERROUS SULFATE 325 MG TAB PO SCH (10:13)
--- NOTE | 2020-10-08 12:01 | Progress Note ---
Assessment and Plan A: /postop day 5 S/P . Anemia. Preeclampsia. P: Discharge patient home this afternoon per Dr. Rogel's order. The following Rx were called to [facility] on [address]: Labetalol 300 mg 1 po TID, #90; Procardia XL 30 mg 1 po daily, #30. Instructed patient re: use of medications. Advised patient to follow up at [facility] office on 10/10/20 for BP check. Advised patient to continue taking her vitamins and iron supplements at home. Advised patient to avoid intercourse, lifting, housework. BP warning signs discussed and she was advised to return promptly if any warning signs occur. Patient voiced understanding of all instructions. Subjective - Subjective Date of service: 10/08/20 Principal diagnosis: day 5 S/P ; preeclampsia Interval history: Patient denies headache, visual disturbance, chest pain, shortness of breath, leg pain, swelling, or N/V. Patient is receiving oral Labetalol and Procardia for control of BPs. Consulted with Dr. Rogel re: this patient and reviewed patient's BPs with Dr. Rogel. Dr. Rogel orders to discharge patient home on Labetalol 300 mg po TID and Procardia XL 30 mg daily and have patient follow up at [facility] in a few days for a BP check. Patient reports: appetite normal, voiding normally, pain well controlled, flatus, ambulating normally, no dizzy ambulation, no nauseated [place]: doing well Objective - Vital Signs Latest vital signs: Vital Signs Temp Pulse Resp BP BP BP Pulse Ox 10/08/20 11:39 72 145/76 10/08/20 10:23 72 160/88 10/08/20 08:00 98.6 F 76 16 151/79 99 10/08/20 06:17 84 134/64 10/08/20 04:33 98.6 F 76 20 130/61 97 10/08/20 00:00 98.6 F 88 20 117/60 99 10/07/20 21:20 81 121/61 10/07/20 20:01 98.9 F 81 18 121/61 97 10/07/20 17:15 98.4 F 92 H 18 121/74 99 10/07/20 12:57 98.2 F 72 18 153/87 97 Intake and Output 10/07/20 10/08/20 10/08/20 23:59 07:59 15:59 Intake Total 560 360 Balance 560 360 Intake: Oral 200 Intake, Free Water 360 360 Other: Total, Intake Amount 200 # Voids Void 1 1 - Exam Cardiovascular: Present: Regular rate Lungs: Present: Clear to auscultation Abdomen: Present: normal appearance, soft, normal bowel sounds. Absent: distention, tenderness, guarding, rigidity Uterus: Present: normal, firm, fundal height below umbilicus. Absent: bogginess, tenderness Extremities: Present: normal. Absent: tenderness, edema
--- NOTE | 2020-10-08 12:38 | Discharge Summary ---
Providers - Providers Date of Admission: 10/01/20 17:16 Date of discharge: 10/08/20 Attending physician: BERNICE RAMSAY Primary care physician: [employer] Hospitalization Reason for admission: induction of labor Delivery: Episiotomy: none Laceration: 1st degree Other procedures: none Discharge diagnosis: IUP at term delivered baby: male Pertinent studies: Labs Hospital course: Stable hospital course. Condition at discharge: Good Disposition: DC-01 TO HOME OR SELFCARE - Discharge Diagnoses (1) Term delivered Status: Acute (2) Anemia Status: Acute Plan - Provider Discharge Summary Activity: routine, no sex for 6 weeks, no heavy lifting 4 weeks, no strenuous exercise Diet: routine Instructions: routine Additional instructions: supplies packer your Rx for Labetalol and Procardia at [facility] and take it as prescribed. Follow up at [facility] on 10/10/20 for BP check. Call your doctor immediately for: * Fever > 100.5 * Heavy vaginal bleeding ( >1 pad per hour) * Severe persistent headache * Shortness of breath * Reddened, hot, painful area to leg or breast - Follow up plan Follow up: PRIMARY CARE, [Primary Care Provider] - 48 Hours Forms: [facility] Discharge Summary
[2020-10-08 14:28] VITALS: BP 168/97
== END 2020-10-08 17:00 | disposition home or self-care (01) | DRG 775 ==
LOC: TRG 14:31 → APU 14:34 → TRG 17:13 → LD 17:16 → OB 10-04 04:40
PROVIDERS: ADMIT Obstetrics & Gynecology; ATTEND Obstetrics & Gynecology
PROC: 3E0R3BZ Introduction of Anesthetic Agent into Spinal Canal, Percutaneous Approach (ICD-10-PCS; 2020-10-02)
PROC: 00HU33Z Insertion of Infusion Device into Spinal Canal, Percutaneous Approach (ICD-10-PCS; 2020-10-02)
PROC: 10E0XZZ Delivery of Products of Conception, External Approach (ICD-10-PCS; principal; 2020-10-03)
PROC: 3E0P7VZ Introduction of Hormone into Female Reproductive, Via Natural or Artificial Opening (ICD-10-PCS; 2020-10-03)
DX: O14.94 Unspecified pre-eclampsia, complicating childbirth (principal); Z3A.39 39 weeks gestation of pregnancy; Z37.0 Single live birth; O77.0 Labor and delivery complicated by meconium in amniotic fluid; O70.0 First degree perineal laceration during delivery; D64.9 Anemia, unspecified; E87.6 Hypokalemia; Z20.822 Contact with and (suspected) exposure to COVID-19
CPT/HCPCS: 36415; 59200; 80053; 81001; 82565; 83615; 83735; 84450; 84460; 84550; 85014; 85018; 85025; 85027; 86850; 86900; 86901; G0378; J0360; J0595; J0690; J1050; J1750; J2405; J2590; J3010; J3475; J3480; J7120; U0003